=== PATIENT | male | born 1965 | race Caucasian/White ===

== ENCOUNTER 2018-01-26 18:38 | Emergency (ER) | payer OTHER ==
--- NOTE | 2018-01-26 18:47 | EDM.PDOC ---
ED HPI GENERAL MEDICAL PROBLEM - General Chief Complaint: Upper Extremity Injury/Pain Stated Complaint: HAVING TROUBLE WITH LF ARM NOT MOVING Time Seen by Provider: 01/26/18 18:47 Source of Information: Reports: Patient History Limitations: Reports: No Limitations - History of Present Illness INITIAL COMMENTS - FREE TEXT/NARRATIVE: HISTORY AND PHYSICAL: History of present illness: Patient is a 52-year-old male who presents to the emergency room with complaints of left shoulder pain and SOB. He states that over the past 3 days he has had increased pain with range of motion or lifting his arm. He states he has had SOB which he associates with Review of systems: As per history of present illness and below otherwise all systems reviewed and negative. Past medical history: As per history of present illness and as reviewed below otherwise noncontributory. Surgical history: As per history of present illness and as reviewed below otherwise noncontributory. Social history: No reported history of drug or alcohol abuse. Family history: As per history of present illness and as reviewed below otherwise noncontributory. Physical exam: General: Well developed and well developed 52 year old male. Alert and orientated. Nontoxic appearing and in no acute distress. HEENT: Atraumatic, normocephalic, pupils equal and reactive bilaterally, negative for conjunctival pallor or scleral icterus, mucous membranes moist, throat clear, neck supple, nontender, trachea midline. No drooling or trismus noted. No meningeal signs Lungs: Clear to auscultation, breath sounds equal bilaterally, chest nontender. Heart: S1S2, regular rate and rhythm without overt murmur Abdomen: Soft, obese, nontender. Umbilical hernia noted. Negative for masses. Negative for costovertebral tenderness. Pelvis: Stable nontender. Genitourinary: Deferred. Rectal: Deferred. Skin: Intact, warm, dry. No lesions or rashes noted. Extremities: Pain and limited ROM involving the left shoulder, able to lift about 30 degrees anteriorly and laterally. Does not affect grasp strength. Strong radial pulses bilaterally. Cap refill less than 3 days. No pain with palpation of the humerous, elbow, forearm, wrist, and hand. Denies any numbness or tingling. Neurovascular unremarkable. Neuro: Awake, alert, oriented. Cranial nerves II through XII unremarkable. Cerebellum unremarkable. Motor and sensory unremarkable throughout. Exam nonfocal. Notes: Chest x-ray is within normal limits. His x-ray of the left shoulder dose calcifications within the distal supraspinatus tendon which may reflect calcific tendinitis. This is the area is where patient has pain. His lab results are within normal limits. I did share the diagnostic findings with the patient. Due to his past history of heart problems I did offer him admission. He is aware of the risks versus being discharged to home without further evaluation of cardiac enzymes. He declines stating he has no chest pain or shortness of breath and he will return if he does develop any cardiac related symptoms. Signs and symptoms that would prompt him to turn to the emergency room were reviewed and discussed. I will place him in a sling for his left shoulder impingement. Pharmacies are currently closed and he would like something for pain at this time. Patient did drive himself so I will give him one tablet for home use along with a prescription. We discussed in great length the need for follow-up with his primary care provider as he has not had a yearly exam in approximately one year. He also needs to follow-up with the orthopedic provider for further evaluation and management of the left shoulder pain. He denies any further questions or concerns at this time. Will discharge to home. Diagnostics: CBC, CMP, Troponin, EKG, CXR, Shoulder (L) xray Therapeutics: ASA, Sling, Ortho referral Prescription: Dougherty (#15) Diclofenac (#20) Impression: Left shoulder impingement Plan: 1. Please wear the shoulder sling for comfort 2. Take your medications as directed. Dougherty for moderate to severe pain. This medication may cause drowsiness a do not take it will driving or needing to be functioning outside of the house. Diclofenac as an anti-inflammatory. This medication should be taken with food. Do not take any additional NSAIDs such as ibuprofen or Aleve. 3. Please follow-up with the orthopedic provider next week, for further evaluation and management of your left shoulder pain. 4. Please return to the emergency room she should develop (but not limited to): chest pain, shortness of breath, nausea/vomiting, sweating, pain that radiates into your neck/back/jaw as we discussed. Definitive disposition and diagnosis as appropriate pending reevaluation and review of above. Duration: Day(s): Location: Reports: Upper Extremity, Left left shoulder Pain Score (Numeric/FACES): 6 - Related Data Allergies Allergy/AdvReac Type Severity Reaction Status Date / Time No Known Allergies Allergy Verified 01/26/18 18:40 Home Meds: Home Meds . [No Known Home Meds] 01/26/18 [History] Review of Systems - Review of Systems Review Of Systems: ROS reveals no pertinent complaints other than HPI. ED EXAM, GENERAL - Physical Exam Exam: See Below (See dictation) Course - Vital Signs Last Recorded V/S: Last Vital Signs Temp 98.0 F 01/26/18 18:41 Pulse 75 01/26/18 19:16 Resp 23 H 01/26/18 19:16 BP 155/87 H 01/26/18 19:16 Pulse Ox 94 L 01/26/18 19:16 - Orders/Labs/Meds Orders: Active Orders 24 hr Category Date Time Status EKG Documentation Completion [RC] STAT Care 01/26/18 18:48 Active Chest 1V Frontal [CR] Stat Exams 01/26/18 18:48 Taken Shoulder Comp Lt [CR] Stat Exams 01/26/18 18:56 Taken Sodium Chloride 0.9% [Saline Flush] Med 01/26/18 18:48 Active 10 ml FLUSH ASDIRECTED PRN Sodium Chloride 0.9% [Saline Flush] Med 01/26/18 18:48 Active 2.5 ml FLUSH ASDIRECTED PRN DME for Discharge [COMM] Stat Oth 01/26/18 20:03 Ordered Saline Lock Insert [OM.PC] Stat Oth 01/26/18 18:48 Ordered Medication Orders Sodium Chloride (Saline Flush) 10 ml FLUSH ASDIRECTED PRN PRN Reason: Keep Vein Open Sodium Chloride (Saline Flush) 2.5 ml FLUSH ASDIRECTED PRN PRN Reason: Keep Vein Open Labs: Laboratory Tests 01/26/18 01/26/18 Range/Units 18:40 18:40 WBC 8.53 (4.0-11.0) K/uL RBC 5.85 (4.50-5.90) M/uL Hgb 18.3 H (13.0-17.0) g/dL Hct 52.5 H (38.0-50.0) % MCV 89.7 (80.0-98.0) fL MCH 31.3 (27.0-32.0) pg MCHC 34.9 (31.0-37.0) g/dL RDW Std Deviation 43.1 (28.0-62.0) fl RDW Coeff of Cate 13 (11.0-15.0) % Plt Count 154 (150-400) K/uL MPV 11.20 (7.40-12.00) fL Neut % (Auto) 62.7 (48.0-80.0) % Lymph % (Auto) 25.6 (16.0-40.0) % [place] % (Auto) 10.1 (0.0-15.0) % Eos % (Auto) 1.5 (0.0-7.0) % Baso % (Auto) 0.1 (0.0-1.5) % Neut # (Auto) 5.4 (1.4-5.7) K/uL Lymph # (Auto) 2.2 (0.6-2.4) K/uL [place] # (Auto) 0.9 H (0.0-0.8) K/uL Eos # (Auto) 0.1 (0.0-0.7) K/uL Baso # (Auto) 0.0 (0.0-0.1) K/uL Nucleated RBC % 0.0 /100WBC Nucleated RBCs # 0 K/uL Sodium 139 (136-148) mmol/L Potassium 3.9 (3.5-5.1) mmol/L Chloride 104 (98-107) mmol/L Carbon Dioxide 30.5 (21.0-32.0) mmol/L BUN 16 (7.0-18.0) mg/dL Creatinine 1.0 (0.8-1.3) mg/dL Est Cr Clr Drug Dosing 103.68 mL/min Estimated GFR (MDRD) > 60.0 ml/min Glucose 146 H (74-106) mg/dL Calcium 9.1 (8.5-10.1) mg/dL Total Bilirubin 0.5 (0.2-1.0) mg/dL AST 14 L (15-37) IU/L ALT 28 (14-63) IU/L Alkaline Phosphatase 51 (46-116) U/L Troponin I < 0.050 (0.000-0.056) ng/mL Total Protein 7.4 (6.4-8.2) g/dL Albumin 3.7 (3.4-5.0) g/dL Globulin 3.7 H (2.0-3.5) g/dL Albumin/Globulin Ratio 1.0 L (1.3-2.8) Meds: Medications Generic Name Dose Route Start Last Admin Trade Name Freq PRN Reason Stop Dose Admin Sodium Chloride 10 ml 01/26/18 18:48 Saline Flush FLUSH ASDIRECTED PRN Keep Vein Open Sodium Chloride 2.5 ml 01/26/18 18:48 Saline Flush FLUSH ASDIRECTED PRN Keep Vein Open Discontinued Medications Generic Name Dose Route Start Last Admin Trade Name Freq PRN Reason Stop Dose Admin Hydrocodone Bitart/Acetaminophen 1 tab 01/26/18 20:01 Dougherty 325-10 Mg PO 01/26/18 20:02 ONETIME ONE Aspirin 324 mg 01/26/18 18:48 01/26/18 18:50 Aspirin PO 01/26/18 18:49 324 mg ONETIME ONE Administration Insulin Human Regular 4 unit 01/26/18 19:47 01/26/18 20:02 Novolin R IVPUSH 01/26/18 19:48 Not Given ONETIME ONE Protocol Ketorolac Tromethamine 30 mg 01/26/18 20:01 Toradol IVPUSH 01/26/18 20:02 ONETIME ONE Departure - Departure Time of Disposition: 20:02 Disposition: Home, Self-Care 01 Clinical Impression: Impingement syndrome, shoulder, left - Discharge Information Instructions: Shoulder Pain, Syix-py-Esth Referrals: PCP,None [Primary Care Provider] - Forms: ED Department Discharge Additional Instructions: The following information is given to patients seen in the emergency department who are being discharged to home. This information is to outline your options for follow-up care. We provide all patients seen in our emergency department with a follow-up referral. The need for follow-up, as well as the timing and circumstances, are variable depending upon the specifics of your emergency department visit. If you don't have a primary care physician on staff, we will provide you with a referral. We always advise you to contact your personal physician following an emergency department visit to inform them of the circumstance of the visit and for follow-up with them and/or the need for any referrals to a consulting specialist. The emergency department will also refer you to a specialist when appropriate. This referral assures that you have the opportunity for follow-up care with a specialist. All of these measure are taken in an effort to provide you with optimal care, which includes your follow-up. Under all circumstances we always encourage you to contact your private physician who remains a resource for coordinating your care. When calling for follow-up care, please make the office aware that this follow-up is from your recent emergency room visit. If for any reason you are refused follow-up, please contact the Emergency Department at and asked to speak to the emergency department charge nurse. Primary Care [address], [place] [address] Specialty Care - Orthopedic Clinic Professional [facility] [address] [place] [address], [address] [place] [address] 1. Please wear the shoulder sling for comfort 2. Take your medications as directed. Dougherty for moderate to severe pain. This medication may cause drowsiness a do not take it will driving or needing to be functioning outside of the house. Diclofenac as an anti-inflammatory. This medication should be taken with food. Do not take any additional NSAIDs such as ibuprofen or Aleve. 3. Please follow-up with the orthopedic provider next week, for further evaluation and management of your left shoulder pain. 4. Please return to the emergency room she should develop (but not limited to): chest pain, shortness of breath, nausea/vomiting, sweating, pain that radiates into your neck/back/jaw as we discussed. - My Orders Last 24 Hours: My Active Orders 01/26/18 18:48 EKG Documentation Completion [RC] STAT Chest 1V Frontal [CR] Stat Sodium Chloride 0.9% [Saline Flush] 10 ml FLUSH ASDIRECTED PRN Sodium Chloride 0.9% [Saline Flush] 2.5 ml FLUSH ASDIRECTED PRN Saline Lock Insert [OM.PC] Stat 01/26/18 18:56 Shoulder Comp Lt [CR] Stat 01/26/18 20:03 DME for Discharge [COMM] Stat - Assessment/Plan Last 24 Hours: My Active Orders 01/26/18 18:48 EKG Documentation Completion [RC] STAT Chest 1V Frontal [CR] Stat Sodium Chloride 0.9% [Saline Flush] 10 ml FLUSH ASDIRECTED PRN Sodium Chloride 0.9% [Saline Flush] 2.5 ml FLUSH ASDIRECTED PRN Saline Lock Insert [OM.PC] Stat 01/26/18 18:56 Shoulder Comp Lt [CR] Stat 01/26/18 20:03 DME for Discharge [COMM] Stat
[2018-01-26] MEDS ORDERED: Aspirin 81 MG Tab.Chew PO ONE (18:48)
[2018-01-26] MEDS ORDERED: Sodium Chloride 0.9% 2.5 ML Syringe FLUSH PRN (18:48)
[2018-01-26] MEDS ORDERED: Sodium Chloride 0.9% 10 ML Syringe FLUSH PRN (18:48)
[2018-01-26 19:25] LABS: CHLORIDE,CL 104 mmol/L (98-107); SODIUM,NA 139 mmol/L (136-148)
[2018-01-26] MEDS ORDERED: Insulin Regular, Human 100 Units/ML 10 ML Vial IVPUSH ONE (19:47)
[2018-01-26] MEDS ORDERED: Acetaminophen/HYDROcodone 325-10 MG Tab PO ONE (20:01)
[2018-01-26] MEDS ORDERED: Ketorolac 30 MG/ML SDV IVPUSH ONE (20:01)
--- NOTE | 2018-01-28 13:12 | CR ---
EXAM DATE: 01/26/18 PATIENT'S AGE: 52 Patient: ARPAN GONZALEZ Facility: [place], [place] Site . Site : 1965 Study: XRay Shoulder Left [id number] 7:19:19 PM Ordering Physician: Doctor Martin Final Report: INDICATION: Pain. TECHNIQUE: Two views of the left shoulder. FINDINGS: Calcifications along the supraspinatus tendon may reflect calcific tendinitis. No fracture, dislocation, or erosion. Impression : Calcifications within this distal supraspinatus tendon may reflect calcific tendinitis. Please correlate clinically. Dictated by Brandon Ritter MD @ Jan 26 2018 7:20PM (Electronic Signature) Report Signed by Proxy. PENG
--- NOTE | 2018-01-28 13:13 | CR ---
EXAM DATE: 01/26/18 PATIENT'S AGE: 52 Patient: ARPAN GONZALEZ Facility: [place], [place] Site . Site : 1965 Study: XRay Chest [id number]/16/2018 7:21:02 PM Ordering Physician: Doctor Martin Final Report: INDICATION: Chest pain. TECHNIQUE: AP upright portable chest. FINDINGS: Shallow inspiration. Clear lungs. Normal heart size and pulmonary vascularity. The included skeletal thorax is unremarkable. Please see x-rays of the left shoulder from the same date. IMPRESSION: Negative portable chest. Dictated by Brandon Ritter MD @ Jan 26 2018 7:31PM (Electronic Signature) Report Signed by Proxy. PENG
== END 2018-01-26 20:19 | disposition home or self-care (01) ==
LOC: MW.ED 18:38
DX: M75.42 Impingement syndrome of left shoulder (principal)
CPT/HCPCS: 36415; 71045; 73030; 80053; 84484; 85025; 96374; 99285; A9270; J1885

== ENCOUNTER 2018-10-02 16:00 | Emergency (ER) | payer OTHER ==
[2018-10-02] MEDS ORDERED: Albuterol/Ipratropium 3.0-0.5 MG/3 ML Neb Soln NEB ONE (16:02)
[2018-10-02] MEDS ORDERED: Sodium Chloride 0.9% 2.5 ML Syringe FLUSH PRN (16:09)
[2018-10-02] MEDS ORDERED: Sodium Chloride 0.9% 10 ML Syringe FLUSH PRN (16:09)
--- NOTE | 2018-10-02 16:16 | EDM.PDOC ---
ED HPI GENERAL MEDICAL PROBLEM - General Chief Complaint: Respiratory Problem Stated Complaint: AMB SHORTNESS OF BREATH Time Seen by Provider: 10/02/18 16:06 - History of Present Illness INITIAL COMMENTS - FREE TEXT/NARRATIVE: HISTORY AND PHYSICAL: History of present illness: Patient is a 53-year-old white male with a somewhat unclear past medical history patient qualifies medical history is having had a pneumonia in the past he was transferred to [facility] from our emergency department on a prior visit for which was felt to time he had congestive heart. His diagnosis ultimately at [facility] was pneumonia per patient he states he does not have any history of lung or heart disease that he knows of and he denies being on current medications patient has had a CTA prior which was negative for pulmonary embolism at that time. He is sent here from clinic short of breath reportedly saturating in the 70s and responded to nonrebreather in the low 90s. He denies chest pain nausea vomiting fever chills or other complaints on arrival here Review of systems: As per history of present illness and below otherwise all systems reviewed and negative. Past medical history: As per history of present illness and as reviewed below otherwise noncontributory. Surgical history: As per history of present illness and as reviewed below otherwise noncontributory. Social history: No reported history of drug or alcohol abuse. Family history: As per history of present illness and as reviewed below otherwise noncontributory. Physical exam: HEENT: Atraumatic, normocephalic, pupils reactive, negative for conjunctival pallor or scleral icterus, mucous membranes moist, throat clear, neck supple, nontender, trachea midline. Lungs: Markedly diminished slightly coarse, breath sounds equal bilaterally, chest nontender. Heart: S1S2, regular, negative for clicks, rubs, or JVD. Abdomen: Soft, protuberant, nontender. Negative for masses or hepatosplenomegaly. Negative for costovertebral tenderness. Pelvis: Stable nontender. Genitourinary: Deferred. Rectal: Deferred. Extremities: Atraumatic, negative for cords or calf pain. Neurovascular unremarkable. 2-3+ peripheral edema Neuro: Awake, alert, oriented. Cranial nerves II through XII unremarkable. Cerebellum unremarkable. Motor and sensory unremarkable throughout. Exam nonfocal. Diagnostics: CBC CMP PT/INR troponin chest x-ray EKG ABG blood culture 2 lactic acid Therapeutics: IV O2 monitor albuterol ipratropium nebulizer Impression: #1 acute dyspnea with hypoxemia #2 morbid obesity Definitive disposition and diagnosis as appropriate pending reevaluation and review of above. - Related Data Allergies Allergy/AdvReac Type Severity Reaction Status Date / Time No Known Allergies Allergy Verified 10/02/18 16:06 Home Meds: Home Meds Lisinopril 5 mg PO DAILY 10/02/18 [History] Tamsulosin HCl [Flomax] 0.4 mg PO DAILY 10/02/18 [History] Past Medical History HEENT History: Reports: Cataract Cardiovascular History: Reports: NC Respiratory History: Reports: Sleep Apnea Gastrointestinal History: Reports: None - Past Surgical History Cardiovascular Surgical History: Reports: None GI Surgical History: Reports: Appendectomy Social & Family History - Family History Family Medical History: Noncontributory - Caffeine Use Caffeine Use: Reports: Coffee ED ROS GENERAL - Review of Systems Review Of Systems: ROS reveals no pertinent complaints other than HPI. ED EXAM, GENERAL - Physical Exam Exam: See Below (See dictation) Course - Vital Signs Last Recorded V/S: Last Vital Signs Temp 36.9 C 10/02/18 16:06 Pulse 92 10/02/18 17:53 Resp 24 H 10/02/18 17:53 BP 174/110 H 10/02/18 17:53 Pulse Ox 93 L 10/02/18 17:53 - Orders/Labs/Meds Orders: Active Orders 24 hr Category Date Time Status Cardiac Monitoring [RC] . DIRECTED Care 10/02/18 16:09 Active EKG Documentation Completion [RC] STAT Care 10/02/18 16:09 Active Oxygen Therapy, ED [RC] ASDIRECTED Care 10/02/18 16:09 Active Pulse Oximetry [RC] ASDIRECTED Care 10/02/18 16:09 Active RT Aerosol Therapy [RC] ASDIRECTED Care 10/02/18 16:02 Active CULTURE BLOOD [BC] Stat Lab 10/02/18 16:16 Received CULTURE BLOOD [BC] Stat Lab 10/02/18 16:26 Received UA RFX ROCKY AND CULT IF INDIC [URIN] Stat Lab 10/02/18 16:09 Ordered Levofloxacin/Dextrose 5%-Water [Levaquin in D5W 750 MG/ Med 10/02/18 17:44 Active 150 ML] 750 mg Premix Bag 1 bag IV ONETIME Sodium Chloride 0.9% [Saline Flush] Med 10/02/18 16:09 Active 10 ml FLUSH ASDIRECTED PRN Sodium Chloride 0.9% [Saline Flush] Med 10/02/18 16:09 Active 2.5 ml FLUSH ASDIRECTED PRN Blood Culture x2 Reflex Set [OM.PC] Stat Oth 10/02/18 16:09 Ordered Saline Lock Insert [OM.PC] Stat Ot 10/02/18 16:09 Ordered Medication Orders Levofloxacin/Dextrose 750 mg/ (Premix) 150 mls @ 100 mls/hr IV ONETIME ONE Stop: 10/02/18 19:13 Last Admin: 10/02/18 17:49 Dose: 100 mls/hr Sodium Chloride (Saline Flush) 10 ml FLUSH ASDIRECTED PRN PRN Reason: Keep Vein Open Last Admin: 10/02/18 16:12 Dose: 10 ml Sodium Chloride (Saline Flush) 2.5 ml FLUSH ASDIRECTED PRN PRN Reason: Keep Vein Open Last Admin: 10/02/18 16:12 Dose: 2.5 ml Labs: Laboratory Tests 10/02/18 10/02/18 10/02/18 Range/Units 16:16 16:16 16:16 WBC 7.54 (4.0-11.0) K/uL RBC 6.01 H (4.50-5.90) M/uL Hgb 18.2 H (13.0-17.0) g/dL Hct 56.9 H (38.0-50.0) % MCV 94.7 (80.0-98.0) fL MCH 30.3 (27.0-32.0) pg MCHC 32.0 (31.0-37.0) g/dL RDW Std Deviation 49.4 (28.0-62.0) fl RDW Coeff of Cate 14 (11.0-15.0) % Plt Count 131 L (150-400) K/uL MPV 11.60 (7.40-12.00) fL Neut % (Auto) 83.1 H (48.0-80.0) % Lymph % (Auto) 11.4 L (16.0-40.0) % [place] % (Auto) 5.0 (0.0-15.0) % Eos % (Auto) 0.4 (0.0-7.0) % Baso % (Auto) 0.1 (0.0-1.5) % Neut # (Auto) 6.3 H (1.4-5.7) K/uL Lymph # (Auto) 0.9 (0.6-2.4) K/uL [place] # (Auto) 0.4 (0.0-0.8) K/uL Eos # (Auto) 0.0 (0.0-0.7) K/uL Baso # (Auto) 0.0 (0.0-0.1) K/uL Nucleated RBC % 0.0 /100WBC Nucleated RBCs # 0 K/uL INR 1.12 ABG pH (7.35-7.45) ABG pCO2 (35-45) mmHG ABG pO2 (75-100) mmHG ABG HCO3 (22-26) mEq/L ABG Total CO2 ABG Base Excess (-2.0-2.0) Lactate (0.20-2.00) mmol/L Sodium 142 (136-148) mmol/L Potassium 4.3 (3.5-5.1) mmol/L Chloride 105 (98-107) mmol/L Carbon Dioxide 32.5 H (21.0-32.0) mmol/L BUN 14 (7.0-18.0) mg/dL Creatinine 0.8 (0.8-1.3) mg/dL Est Cr Clr Drug Dosing 114.51 mL/min Estimated GFR (MDRD) > 60.0 ml/min Glucose 118 H (74-106) mg/dL Calcium 8.6 (8.5-10.1) mg/dL Total Bilirubin 0.8 (0.2-1.0) mg/dL AST 9 L (15-37) IU/L ALT 18 (14-63) IU/L Alkaline Phosphatase 51 (46-116) U/L Troponin I < 0.050 (0.000-0.056) ng/mL B-Natriuretic Peptide (<100) PG/ML Total Protein 6.9 (6.4-8.2) g/dL Albumin 3.1 L (3.4-5.0) g/dL Globulin 3.8 (2.6-4.0) g/dL Albumin/Globulin Ratio 0.8 L (0.9-1.6) 10/02/18 10/02/18 10/02/18 Range/Units 16:16 16:16 16:23 WBC (4.0-11.0) K/uL RBC (4.50-5.90) M/uL Hgb (13.0-17.0) g/dL Hct (38.0-50.0) % MCV (80.0-98.0) fL MCH (27.0-32.0) pg MCHC (31.0-37.0) g/dL RDW Std Deviation (28.0-62.0) fl RDW Coeff of Cate (11.0-15.0) % Plt Count (150-400) K/uL MPV (7.40-12.00) fL Neut % (Auto) (48.0-80.0) % Lymph % (Auto) (16.0-40.0) % [place] % (Auto) (0.0-15.0) % Eos % (Auto) (0.0-7.0) % Baso % (Auto) (0.0-1.5) % Neut # (Auto) (1.4-5.7) K/uL Lymph # (Auto) (0.6-2.4) K/uL [place] # (Auto) (0.0-0.8) K/uL Eos # (Auto) (0.0-0.7) K/uL Baso # (Auto) (0.0-0.1) K/uL Nucleated RBC % /100WBC Nucleated RBCs # K/uL INR ABG pH 7.288 L (7.35-7.45) ABG pCO2 72 H (35-45) mmHG ABG pO2 99 (75-100) mmHG ABG HCO3 34 H (22-26) mEq/L ABG Total CO2 29.6 ABG Base Excess 4.2 H (-2.0-2.0) Lactate 0.6 (0.20-2.00) mmol/L Sodium (136-148) mmol/L Potassium (3.5-5.1) mmol/L Chloride (98-107) mmol/L Carbon Dioxide (21.0-32.0) mmol/L BUN (7.0-18.0) mg/dL Creatinine (0.8-1.3) mg/dL Est Cr Clr Drug Dosing mL/min Estimated GFR (MDRD) ml/min Glucose (74-106) mg/dL Calcium (8.5-10.1) mg/dL Total Bilirubin (0.2-1.0) mg/dL AST (15-37) IU/L ALT (14-63) IU/L Alkaline Phosphatase (46-116) U/L Troponin I (0.000-0.056) ng/mL B-Natriuretic Peptide 102 H (<100) PG/ML Total Protein (6.4-8.2) g/dL Albumin (3.4-5.0) g/dL Globulin (2.6-4.0) g/dL Albumin/Globulin Ratio (0.9-1.6) Meds: Medications Generic Name Dose Route Start Last Admin Trade Name Freq PRN Reason Stop Dose Admin Levofloxacin/Dextrose 750 mg/ 150 mls @ 100 mls/hr 10/02/18 17:44 10/02/18 17 :49 Premix IV 10/02/18 19:13 100 mls/hr ONETIME ONE Administration Sodium Chloride 10 ml 10/02/18 16:09 10/02/18 16:12 Saline Flush FLUSH 10 ml ASDIRECTED PRN Administration Keep Vein Open Sodium Chloride 2.5 ml 10/02/18 16:09 10/02/18 16:12 Saline Flush FLUSH 2.5 ml ASDIRECTED PRN Administration Keep Vein Open Discontinued Medications Generic Name Dose Route Start Last Admin Trade Name Freq PRN Reason Stop Dose Admin Albuterol/Ipratropium 3 ml 10/02/18 16:02 10/02/18 16:03 Duoneb 3.0-0.5 Mg/3 Ml NEB 10/02/18 16:03 3 ml ONETIME ONE Administration Departure - Departure Time of Disposition: 17:56 Disposition: DC/Tfer to Acute Hospital 02 Condition: Serious Clinical Impression: Respiratory failure, Pneumonia - Discharge Information Forms: ED Department Discharge - My Orders Last 24 Hours: My Active Orders 10/02/18 16:02 RT Aerosol Therapy [RC] ASDIRECTED 10/02/18 16:09 Cardiac Monitoring [RC] . DIRECTED EKG Documentation Completion [RC] STAT Oxygen Therapy, ED [RC] ASDIRECTED Pulse Oximetry [RC] ASDIRECTED UA RFX ROCKY AND CULT IF INDIC [URIN] Stat Sodium Chloride 0.9% [Saline Flush] 10 ml FLUSH ASDIRECTED PRN Sodium Chloride 0.9% [Saline Flush] 2.5 ml FLUSH ASDIRECTED PRN Blood Culture x2 Reflex Set [OM.PC] Stat Saline Lock Insert [OM.PC] Stat 10/02/18 16:16 CULTURE BLOOD [BC] Stat 10/02/18 16:26 CULTURE BLOOD [BC] Stat 10/02/18 17:44 Levofloxacin/Dextrose 5%-Water [Levaquin in D5W 750 MG/150 ML] 750 mg Premix Bag 1 bag IV ONETIME - Assessment/Plan Last 24 Hours: My Active Orders 10/02/18 16:02 RT Aerosol Therapy [RC] ASDIRECTED 10/02/18 16:09 Cardiac Monitoring [RC] . DIRECTED EKG Documentation Completion [RC] STAT Oxygen Therapy, ED [RC] ASDIRECTED Pulse Oximetry [RC] ASDIRECTED UA RFX ROCKY AND CULT IF INDIC [URIN] Stat Sodium Chloride 0.9% [Saline Flush] 10 ml FLUSH ASDIRECTED PRN Sodium Chloride 0.9% [Saline Flush] 2.5 ml FLUSH ASDIRECTED PRN Blood Culture x2 Reflex Set [OM.PC] Stat Saline Lock Insert [OM.PC] Stat 10/02/18 16:16 CULTURE BLOOD [BC] Stat 10/02/18 16:26 CULTURE BLOOD [BC] Stat 10/02/18 17:44 Levofloxacin/Dextrose 5%-Water [Levaquin in D5W 750 MG/150 ML] 750 mg Premix Bag 1 bag IV ONETIME
[2018-10-02 17:08] LABS: CHLORIDE,CL 105 mmol/L (98-107); SODIUM,NA 142 mmol/L (136-148)
[2018-10-02] MEDS ORDERED: Levofloxacin/Dextrose 5%-Water 750 MG in Premix Bag 1 BAG IV ONE (17:44)
== END 2018-10-02 19:45 ==
LOC: MW.ED 16:00
DX: J96.91 Respiratory failure, unspecified with hypoxia (principal); J18.9 Pneumonia, unspecified organism; E66.01 Morbid (severe) obesity due to excess calories; I25.2 Old myocardial infarction; Z90.49 Acquired absence of other specified parts of digestive tract; Z79.899 Other long term (current) drug therapy
CPT/HCPCS: 36415; 36600; 80053; 82803; 83605; 83880; 84484; 85025; 85610; 87040; 93005; 94640; 96365; 99285; A4217; J1956; J7620-GY

== ENCOUNTER 2019-04-03 17:40 | Emergency (ER) | payer SELFPAY ==
[2019-04-03] MEDS ORDERED: Aspirin 81 MG Tab.Chew PO ONE (17:49)
--- NOTE | 2019-04-03 17:52 | EDM.PDOC ---
ED HPI GENERAL MEDICAL PROBLEM - General Stated Complaint: DIFFICULTY BREATHING Time Seen by Provider: 04/03/19 17:47 - History of Present Illness INITIAL COMMENTS - FREE TEXT/NARRATIVE: HISTORY AND PHYSICAL: History of present illness: Patient is a 53-year-old white male with history of morbid obesity and respiratory failure secondary to pneumonia who is seen on a prior occasion for this and subsequently transferred to [facility] he returns tonight with concern of shortness of breath progressively worse over the last 24 hours he denies fever chills nausea vomiting is presents by ambulance he denies chest pain. Review of systems: As per history of present illness and below otherwise all systems reviewed and negative. Past medical history: As per history of present illness and as reviewed below otherwise noncontributory. Surgical history: As per history of present illness and as reviewed below otherwise noncontributory. Social history: No reported history of drug or alcohol abuse. Family history: As per history of present illness and as reviewed below otherwise noncontributory. Physical exam: HEENT: Atraumatic, normocephalic, pupils reactive, negative for conjunctival pallor or scleral icterus, mucous membranes moist, throat clear, neck supple, nontender, trachea midline. Lungs: Coarse bilaterally diminished breath sounds equal bilaterally, chest nontender. Heart: S1S2, regular, negative for clicks, rubs, or JVD. Abdomen: Soft, protuberant nontender. Negative for masses or hepatosplenomegaly. Negative for costovertebral tenderness. Pelvis: Stable nontender. Genitourinary: Deferred. Rectal: Deferred. Extremities: Atraumatic, negative for cords or calf pain. Neurovascular unremarkable. 3+ peripheral edema inferiorly Neuro: Awake, alert, oriented. Cranial nerves II through XII unremarkable. Cerebellum unremarkable. Motor and sensory unremarkable throughout. Exam nonfocal. Diagnostics: CBC CMP troponin PT/INR chest x-ray EKG ABG blood culture 2 UA Therapeutics: IV O2 monitor Impression: #1 acute dyspnea Definitive disposition and diagnosis as appropriate pending reevaluation and review of above. - Related Data Allergies Allergy/AdvReac Type Severity Reaction Status Date / Time No Known Allergies Allergy Verified 04/03/19 17:50 Home Meds: Home Meds Lisinopril 5 mg PO DAILY 10/02/18 [History] Tamsulosin HCl [Flomax] 0.4 mg PO DAILY 10/02/18 [History] Past Medical History HEENT History: Reports: Cataract Cardiovascular History: Reports: OR Respiratory History: Reports: Sleep Apnea Gastrointestinal History: Reports: None Genitourinary History: Reports: Prostate Disorder - Infectious Disease History Infectious Disease History: Reports: None - Past Surgical History Cardiovascular Surgical History: Reports: None GI Surgical History: Reports: Appendectomy Social & Family History - Family History Family Medical History: Noncontributory - Caffeine Use Caffeine Use: Reports: Coffee ED ROS GENERAL - Review of Systems Review Of Systems: Comprehensive ROS is negative, except as noted in HPI. ED EXAM, GENERAL - Physical Exam Exam: See Below (See dictation) Course - Vital Signs Text/Narrative:: Patient remains awake alert and oriented in the emergency department I did discuss with him the need for possible intubation patient states that they have slowly necessary he does consent we have initiated BiPAP and repeat arterial blood gases pending I discussed the risk-benefit for transport with receiving physician who agrees with a judicious approach predicated upon reevaluation and discussion with flight team. Last Recorded V/S: Last Vital Signs Temp 36.7 C 04/03/19 17:45 Pulse 95 04/03/19 17:45 Resp 36 H 04/03/19 17:45 BP 148/95 H 04/03/19 17:45 Pulse Ox 92 L 04/03/19 17:45 - Orders/Labs/Meds Orders: Active Orders 24 hr Category Date Time Status BIPAP Adult [RT BiPAP/CPAP] [RC] ASDIRECTED Care 04/03/19 18:32 Active Cardiac Monitoring [RC] . DIRECTED Care 04/03/19 17:48 Active EKG Documentation Completion [RC] STAT Care 04/03/19 17:48 Active Oxygen Therapy, ED [RC] ASDIRECTED Care 04/03/19 17:48 Active Pulse Oximetry [RC] ASDIRECTED Care 04/03/19 17:48 Active CULTURE BLOOD [BC] Stat Lab 04/03/19 17:45 Received CULTURE BLOOD [BC] Stat Lab 04/03/19 17:45 Received UA RFX ROCKY AND CULT IF INDIC [URIN] Stat Lab 04/03/19 17:48 Ordered Sodium Chloride 0.9% [Normal Saline] 1,000 ml Med 04/03/19 18:00 Active IV STAT Blood Culture x2 Reflex Set [OM.PC] Stat Oth 04/03/19 17:48 Ordered Medication Orders Sodium Chloride (Normal Saline) 1,000 mls @ 125 mls/hr IV STAT ARPIT Last Admin: 04/03/19 17:58 Dose: 125 mls/hr Labs: Laboratory Tests 04/03/19 04/03/19 04/03/19 Range/Units 17:45 17:45 17:45 WBC 9.40 (4.0-11.0) K/uL RBC 5.99 H (4.50-5.90) M/uL Hgb 18.6 H (13.0-17.0) g/dL Hct 59.0 H (38.0-50.0) % MCV 98.5 H (80.0-98.0) fL MCH 31.1 (27.0-32.0) pg MCHC 31.5 (31.0-37.0) g/dL RDW Std Deviation 51.6 (28.0-62.0) fl RDW Coeff of Cate 14 (11.0-15.0) % Plt Count 199 (150-400) K/uL MPV 10.90 (7.40-12.00) fL Neut % (Auto) 73.5 (48.0-80.0) % Lymph % (Auto) 13.3 L (16.0-40.0) % Henderson % (Auto) 13.0 (0.0-15.0) % Eos % (Auto) 0.1 (0.0-7.0) % Baso % (Auto) 0.1 (0.0-1.5) % Neut # (Auto) 6.9 H (1.4-5.7) K/uL Lymph # (Auto) 1.3 (0.6-2.4) K/uL Henderson # (Auto) 1.2 H (0.0-0.8) K/uL Eos # (Auto) 0.0 (0.0-0.7) K/uL Baso # (Auto) 0.0 (0.0-0.1) K/uL Nucleated RBC % 2.8 /100WBC Nucleated RBCs # 0 K/uL INR 1.32 ABG pH (7.35-7.45) ABG pCO2 (35-45) mmHG ABG pO2 (75-100) mmHG ABG HCO3 (22-26) mEq/L ABG Total CO2 ABG Base Excess (-2.0-2.0) Sodium 138 (136-148) mmol/L Potassium 4.4 (3.5-5.1) mmol/L Chloride 102 (98-107) mmol/L Carbon Dioxide 32.7 H (21.0-32.0) mmol/L BUN 40 H (7.0-18.0) mg/dL Creatinine 1.3 (0.8-1.3) mg/dL Est Cr Clr Drug Dosing 78.82 mL/min Estimated GFR (MDRD) 57.3 ml/min Glucose 129 H (74-106) mg/dL Calcium 8.3 L (8.5-10.1) mg/dL Total Bilirubin 0.5 (0.2-1.0) mg/dL AST 18 (15-37) IU/L ALT 33 (14-63) IU/L Alkaline Phosphatase 49 (46-116) U/L Troponin I 0.063 H* (0.000-0.056) ng/mL B-Natriuretic Peptide (<100) PG/ML Total Protein 6.4 (6.4-8.2) g/dL Albumin 3.1 L (3.4-5.0) g/dL Globulin 3.3 (2.6-4.0) g/dL Albumin/Globulin Ratio 0.9 (0.9-1.6) 04/03/19 04/03/19 Range/Units 17:45 17:53 WBC (4.0-11.0) K/uL RBC (4.50-5.90) M/uL Hgb (13.0-17.0) g/dL Hct (38.0-50.0) % MCV (80.0-98.0) fL MCH (27.0-32.0) pg MCHC (31.0-37.0) g/dL RDW Std Deviation (28.0-62.0) fl RDW Coeff of Cate (11.0-15.0) % Plt Count (150-400) K/uL MPV (7.40-12.00) fL Neut % (Auto) (48.0-80.0) % Lymph % (Auto) (16.0-40.0) % Henderson % (Auto) (0.0-15.0) % Eos % (Auto) (0.0-7.0) % Baso % (Auto) (0.0-1.5) % Neut # (Auto) (1.4-5.7) K/uL Lymph # (Auto) (0.6-2.4) K/uL Henderson # (Auto) (0.0-0.8) K/uL Eos # (Auto) (0.0-0.7) K/uL Baso # (Auto) (0.0-0.1) K/uL Nucleated RBC % /100WBC Nucleated RBCs # K/uL INR ABG pH 7.186 L* (7.35-7.45) ABG pCO2 100 H (35-45) mmHG ABG pO2 87 (75-100) mmHG ABG HCO3 38 H (22-26) mEq/L ABG Total CO2 33.8 ABG Base Excess 4.2 H (-2.0-2.0) Sodium (136-148) mmol/L Potassium (3.5-5.1) mmol/L Chloride (98-107) mmol/L Carbon Dioxide (21.0-32.0) mmol/L BUN (7.0-18.0) mg/dL Creatinine (0.8-1.3) mg/dL Est Cr Clr Drug Dosing mL/min Estimated GFR (MDRD) ml/min Glucose (74-106) mg/dL Calcium (8.5-10.1) mg/dL Total Bilirubin (0.2-1.0) mg/dL AST (15-37) IU/L ALT (14-63) IU/L Alkaline Phosphatase (46-116) U/L Troponin I (0.000-0.056) ng/mL B-Natriuretic Peptide 412 H (<100) PG/ML Total Protein (6.4-8.2) g/dL Albumin (3.4-5.0) g/dL Globulin (2.6-4.0) g/dL Albumin/Globulin Ratio (0.9-1.6) Meds: Medications Generic Name Dose Route Start Last Admin Trade Name Freq PRN Reason Stop Dose Admin Sodium Chloride 1,000 mls @ 125 mls/hr 04/03/19 18:00 04/03/19 17:58 Normal Saline IV 125 mls/hr STAT ARPIT Administration Discontinued Medications Generic Name Dose Route Start Last Admin Trade Name Karen PRN Reason Stop Dose Admin Aspirin 324 mg 04/03/19 17:49 04/03/19 17:57 Aspirin PO 04/03/19 17:50 324 mg ONETIME ONE Administration Furosemide 40 mg 04/03/19 18:44 Lasix IVPUSH 04/03/19 18:45 NOW ONE Departure - Departure Time of Disposition: 18:56 Disposition: DC/Tfer to Acute Hospital 02 Condition: Serious Clinical Impression: Reduced ventilatory capacity, Acute dyspnea - Discharge Information - My Orders Last 24 Hours: My Active Orders 04/03/19 17:45 CULTURE BLOOD [BC] Stat CULTURE BLOOD [BC] Stat 04/03/19 17:48 Cardiac Monitoring [RC] . DIRECTED EKG Documentation Completion [RC] STAT Oxygen Therapy, ED [RC] ASDIRECTED Pulse Oximetry [RC] ASDIRECTED UA RFX ROCKY AND CULT IF INDIC [URIN] Stat Blood Culture x2 Reflex Set [OM.PC] Stat 04/03/19 18:00 Sodium Chloride 0.9% [Normal Saline] 1,000 ml IV STAT 04/03/19 18:32 BIPAP Adult [RT BiPAP/CPAP] [RC] ASDIRECTED - Assessment/Plan Last 24 Hours: My Active Orders 04/03/19 17:45 CULTURE BLOOD [BC] Stat CULTURE BLOOD [BC] Stat 04/03/19 17:48 Cardiac Monitoring [RC] . DIRECTED EKG Documentation Completion [RC] STAT Oxygen Therapy, ED [RC] ASDIRECTED Pulse Oximetry [RC] ASDIRECTED UA RFX ROCKY AND CULT IF INDIC [URIN] Stat Blood Culture x2 Reflex Set [OM.PC] Stat 04/03/19 18:00 Sodium Chloride 0.9% [Normal Saline] 1,000 ml IV STAT 04/03/19 18:32 BIPAP Adult [RT BiPAP/CPAP] [RC] ASDIRECTED
[2019-04-03] MEDS ORDERED: Sodium Chloride 0.9% 1,000 ML IV SCH (18:00)
[2019-04-03 18:40] LABS: CARBON DIOXIDE,CO2 32.7 mmol/L (21.0-32.0); POTASSIUM,K 4.4 mmol/L (3.5-5.1)
--- NOTE | 2019-04-03 18:41 | CR ---
INDICATION: Pain. Shortness of breath. TECHNIQUE: AP portable upright chest at 18:15 p.m. FINDINGS: Markedly shallow inspiratory effort. Basilar atelectasis. Possible cardiac enlargement clearly accentuated by the AP upright portable technique and shallow inspiratory effort. IMPRESSION: Very shallow inspiratory effort. Probable cardiac enlargement and basilar atelectasis. Dictated by Brandon Ritter MD @ Apr 03 2019 6:40PM Signed by Dr. Brandon Ritter @ Apr 03 2019 6:40PM
[2019-04-03] MEDS ORDERED: Furosemide 40 MG/4 ML VIAL IVPUSH ONE (18:44)
== END 2019-04-03 19:45 ==
LOC: MW.ED 17:40
DX: R06.00 Dyspnea, unspecified (principal); I25.2 Old myocardial infarction; Z79.899 Other long term (current) drug therapy; E66.01 Morbid (severe) obesity due to excess calories; Z68.42 Body mass index [BMI] 45.0-49.9, adult; Z87.09 Personal history of other diseases of the respiratory system
CPT/HCPCS: 36415; 36600; 71045; 80053; 82803; 83880; 84484; 85025; 85610; 87040; 87804; 93005; 94660; 96374; 99285; A9270; J1940; J7040

== ENCOUNTER 2019-05-18 06:37 | Emergency (ER) | payer OTHER ==
[2019-05-18] MEDS ORDERED: Ketamine 500 mg/10 ML MDV ONE (06:38)
[2019-05-18] MEDS ORDERED: Vasopressin 20 Units/1 ML MDV ONE (06:38)
[2019-05-18] MEDS ORDERED: Succinylcholine 200 MG/10 ML MDV IV ONE (06:38)
[2019-05-18] MEDS ORDERED: EPINEPHrine 1:10,000 1 MG/10 ML Syringe IV ONE (06:38)
[2019-05-18] MEDS ORDERED: Rocuronium 100 MG/10 ML MDV IV ONE (06:38)
[2019-05-18] MEDS ORDERED: Piperacillin/Tazobactam 4.5 GM in Sodium Chloride 0.9% 100 ML IV ONE (07:02)
--- NOTE | 2019-05-18 07:13 | PCM.SN ---
- Free Text/Narrative Note: Called byt Dr Simeon to assist with intubation. SpO2 84% on FiO2 - 100% on BiPAP. On arrival Dr Marrero is administering meds Ketamine 300mg IVP and Succinylcholine 100mg IVP. DL by Dr Simeon with Glidescope #4 yields grade I view. Unable to advance ETT beyond the vocal cords after rigid stylet removal. Bougie advanced down ETT and ETT was the able to advance. + BBS + ETCO2. SpO2 up to 96% on following vent setttings. TV 750 RR 12 FiO2 - 100% Peep-5 PS 10. Rocuronium 50 mg IVP given for continued relaxation. All other medications per Dr Simeon.
[2019-05-18 07:44] LABS: BLOOD UREA NITROGEN,BUN 21 mg/dL (7.0-18.0); CARBON DIOXIDE,CO2 33.7 mmol/L (21.0-32.0); CHLORIDE,CL 103 mmol/L (98-107); GLUCOSE RANDOM 182 mg/dL (74-106); POTASSIUM,K 5.5 mmol/L (3.5-5.1); SODIUM,NA 141 mmol/L (136-148)
--- NOTE | 2019-05-18 08:15 | CR ---
INDICATION: Shortness of breath, post intubation with tube reposition. TECHNIQUE: Chest 1 view COMPARISON: Chest radiograph 04/03/2019. FINDINGS: Placement of endotracheal tube with tip at the thoracic inlet, 8.1 cm above the pradeep. Placement of enteric tube with tip at least to the level of the diaphragm but not imaged on this exam. Low lung volumes with bibasilar atelectasis. New linear atelectasis in the right midlung. Small bilateral pleural effusions. No pneumothorax. Cardiac silhouette and pulmonary vascularity accentuated by portable technique and low lung volumes, however there is likely cardiomegaly at baseline. The mediastinum appears similarly widened compared to prior exam. IMPRESSION: 1. Placement of endotracheal tube with tip at the thoracic inlet, 8.1 cm above the pradeep. 2. Placement of enteric tube with tip not visualized. 3. Low lung volumes with bibasilar atelectasis. 4. Small bilateral pleural effusions. 5. Likely baseline cardiomegaly, however heart size is accentuated by low lung volumes and portable technique. 6. The mediastinum appears similarly widened compared to prior exam. Dictated by Maryjo Gary MD @ May 18 2019 8:11AM Signed by Dr. Maryjo Gary @ May 18 2019 8:15AM
== END 2019-05-18 07:57 ==
LOC: MW.ED 06:37
DX: J96.90 Respiratory failure, unspecified, unspecified whether with hypoxia or hypercapnia (principal); I50.9 Heart failure, unspecified; E66.01 Morbid (severe) obesity due to excess calories; Z68.43 Body mass index [BMI] 50.0-59.9, adult
CPT/HCPCS: 31500; 43752; 51702; 71045; 80053; 83605; 83880; 84443; 84484; 85025; 87040; 93005; 94002; 94660; 96360; 96365; 99291; 99292; J0171; J0330; J3490; 99285